=== PATIENT | male | born 1980 | race Two or more races ===

== ENCOUNTER 2025-02-12 22:43 | Emergency (ER) | payer OTHER ==
[~2025-02-12] VITALS: Ht 177.8 cm; Wt 167.8 kg
[2025-02-13] MEDS ORDERED: SODIUM CHLORIDE 0.45 % 1,000 ML IV STA (01:16)
[2025-02-13] MEDS ORDERED: MORPHINE SULFATE 4 MG/ML CARTRIDGE IV STA ×2 (01:17→04:48)
[2025-02-13] MEDS ORDERED: ONDANSETRON HCL 2 MG/ML VIAL IV STA (01:17)
[2025-02-13] MEDS ORDERED: ONDANSETRON HCL 2 MG/ML VIAL ONE (02:16)
[2025-02-13 02:39] LABS: BASO % 0.6 % (0.1-1.2); EOS # 0.20 (0.04-0.54); EOS % 1.2 % (0.7-7.0); LYMPH # 2.38 (1.18-3.74); LYMPH % 13.7 % (19.3-53.1); MEAN PLATELET VOLUME 9.10 fl (9.4-12.4); MONO # 1.19 (0.24-0.82); MONO % 6.9 % (4.7-12.5); NEUT # 13.30 (1.56-6.13); NEUT % 76.7 % (34.0-71.1); RED CELL DISTRIBUTION WIDTH 13.1 % (11.6-14.4)
[2025-02-13 02:57] LABS: ALT/SGPT 43.0 U/L (12-78); AST/SGOT 22.0 U/L (15-37); BILIRUBIN TOTAL 0.51 mg/dL (0.3-1.2); BUN CREA RATIO 14.0 (7.0-25.0); CREATININE SERUM 1.4 mg/dL (0.70-1.30); GFR 55.31; GLOBULINA 4.9 G/DL (2.4-3.5); GLUCOSE FASTING 147.0 mg/dL (65-100); OSMOLALITY SERUM 279.0 MOSM/KG (275-295)
[2025-02-13] MEDS ORDERED: DEXAMETHASONE SODIUM PHOSPHATE 4 MG/ML VIAL IV STA ×2 (03:22→12:27)
[2025-02-13] MEDS ORDERED: DEXAMETHASONE SODIUM PHOSPHATE 4 MG/ML VIAL ONE (03:42)
[2025-02-13 05:19] LABS: INR 1.06
[2025-02-13] MEDS ORDERED: FAMOTIDINE/PF 20 MG/2 ML VIAL IV PUSH STA (08:00)
[2025-02-13] MEDS ORDERED: DIPHENHYDRAMINE HCL 50 MG/ML VIAL 1ML IV STA (12:27)
[2025-02-13] MEDS ORDERED: KETOROLAC TROMETHAMINE 30 MG VIAL IU STA (12:30)
[2025-02-13] MEDS ORDERED: METOCLOPRAMIDE HCL 10 MG in DEXTROSE 5 % IN WATER 50 ML IV ONE (12:30)
[2025-02-13] MEDS ORDERED: BUTALBIT-ACETA1 EACH PO (14:29)
== END 2025-02-13 15:39 | disposition home or self-care (01) ==
LOC: ER 22:44
PROVIDERS: General Practice
DX: R51.9 Headache, unspecified (principal); I10 Essential (primary) hypertension; E23.7 Disorder of pituitary gland, unspecified